=== PATIENT | male | born 1960 | race Two or more races ===

== ENCOUNTER 2025-07-16 23:56 | Emergency (ER) | payer OTHER ==
[~2025-07-16] VITALS: Ht 175.3 cm; Wt 93.9 kg
[~2025-07-16 23:56] MED LIST: ATENOLOL25 MG; NORVASC2.5 MG
[2025-07-17] MEDS ORDERED: FOLIC ACID20 MG PO (00:02)
[2025-07-17] MEDS ORDERED: HYDROCHLOROTH12.5 MG (00:13)
[2025-07-17] MEDS ORDERED: HADLIMA40 MG/0.8 SQ (00:14)
[2025-07-17] MEDS ORDERED: ZEPBOUND5 MG/0.5 M SQ (00:14)
[2025-07-17] MEDS ORDERED: FAMOTIDINE/PF 20 MG/2 ML VIAL IV PUSH STA (00:54)
[2025-07-17] MEDS ORDERED: ONDANSETRON HCL 2 MG/ML VIAL IV STA (00:54)
[2025-07-17] MEDS ORDERED: FAMOTIDINE/PF 20 MG/2 ML VIAL ONE (00:55)
[2025-07-17] MEDS ORDERED: ONDANSETRON HCL 2 MG/ML VIAL ONE (00:55)
[2025-07-17] MEDS ORDERED: NITROGLYCERIN 0.4 MG TAB.SUBL SL SCH (01:00)
[2025-07-17] MEDS ORDERED: 0.9 % SODIUM CHLORIDE 1,000 ML IV ONE (01:00)
[2025-07-17 01:48] LABS: BASO % 0.7 % (0.1-1.2); EOS # 0.08 (0.04-0.54); EOS % 1.0 % (0.7-7.0); LYMPH # 1.76 (1.18-3.74); LYMPH % 21.8 % (19.3-53.1); MEAN PLATELET VOLUME 10.60 fl (9.4-12.4); MONO # 0.71 (0.24-0.82); MONO % 8.8 % (4.7-12.5); NEUT # 5.42 (1.56-6.13); NEUT % 67.3 % (34.0-71.1); RED CELL DISTRIBUTION WIDTH 14.0 % (11.6-14.4)
[2025-07-17 02:16] LABS: INR 0.94
[2025-07-17] MEDS ORDERED: PROMETHAZINE HCL 50 MG/ML AMPUL IM STA (03:00)
[2025-07-17] MEDS ORDERED: PROMETHAZINE HCL 50 MG/ML AMPUL IM ONE (03:06)
[2025-07-17 03:13] LABS: ALT/SGPT 30.0 U/L (12-78); AST/SGOT 19.0 U/L (15-37); BILIRUBIN TOTAL 0.31 mg/dL (0.3-1.2); BUN CREA RATIO 15.0 (7.0-25.0); CREATININE SERUM 1.14 mg/dL (0.70-1.30); GFR 64.67; GLOBULINA 3.7 G/DL (2.4-3.5); GLUCOSE FASTING 140.0 mg/dL (65-100); OSMOLALITY SERUM 285.0 MOSM/KG (275-295)
[2025-07-17 03:29] LABS: URINE APPEARANCE Clear; URINE BILIRRUBIN Negative (NEGATIVE); URINE BLOOD Negative; URINE COLOR Yellow; URINE GLUCOSE Negative (NEGATIVE); URINE KETONE Negative (NEGATIVE); URINE LEUKOCYTE Negative; URINE NITRATE Negative; URINE PROTEIN Negative (NEGATIVE); URINE UROBILINOGEN 0.2 E.U./dl
[2025-07-17 03:33] LABS: URINE RBC 3.5 uL (0.0-20.8); URINE WBC 2.4 uL (0.0-23.2)
[2025-07-17 03:36] LABS: URINE BACTERIA 2.3 uL (0.0-1933); URINE CAST 0.00 uL (0.0-1.40); URINE EPITHELIAL CELLS 0.4 uL (0.0-38.8)
[2025-07-17] MEDS ORDERED: ORPHENADRINE CITRATE 30 MG/ML AMPUL IM STA (04:52)
[2025-07-17] MEDS ORDERED: ORPHENADRINE CITRATE 30 MG/ML AMPUL ONE (04:54)
[2025-07-17] MEDS ORDERED: NORFLEX100MG PO (07:14)
[2025-07-17] MEDS ORDERED: PEPCID40 MG PO (07:14)
[2025-07-17] MEDS ORDERED: ZOFRAN8 MG PO (07:14)
[2025-07-17 07:35] VITALS: BP 119/79; O2SAT 98
== END 2025-07-17 07:37 ==
LOC: ER 23:56
PROVIDERS: General Practice
DX: R11.10 Vomiting, unspecified (principal); R10.13 Epigastric pain; M54.9 Dorsalgia, unspecified; R07.9 Chest pain, unspecified; I10 Essential (primary) hypertension; Z88.6 Allergy status to analgesic agent